=== PATIENT | female | born 1995 | race Caucasian/White ===

== ENCOUNTER 2016-06-05 22:00 | Emergency (ER) | payer OTHER ==
[~2016-06-05] VITALS: Ht 160 cm; Wt 62.7 kg
[~2016-06-05 22:00] MED LIST: AMPH20CA3 PO
[2016-06-05 22:04] VITALS: TEMP 36.8; Ht 160 cm; Wt 62.7 kg
[2016-06-05] MEDS ORDERED: FERR1TAB13 PO (23:08)
[2016-06-05] MEDS ORDERED: MULT1CAP6 PO (23:08)
[2016-06-05] MEDS ORDERED: XYLOCAINE 1%/SOD BICARB 20 ML VIAL INFIL ONE (23:30)
--- NOTE | 2016-06-05 23:45 | EMERGENCY ROOM VISIT NOTE ---
ED Visit Note First contact with patient: 22:40 Chief Complaint: "Cut on left palm". History of Present Illness: This patient is a 20-year-old female who presents to the Emergency Department via private vehicle accompanied by female friend for evaluation of their left first digit/palm laceration. Patient sustained the laceration while attempting to cut some potatoes with a knife around 5:30 PM when the knife accidentally slipped and cut her left hand. They report a minimal amount of bleeding initially. They deny any numbness or tingling into the distal extremity. They report no decreased range of motion of the affected digit. There is pain with flexion of the thumb. The knife was intact and not broken. Patient is right-handed. Patient rates her current discomfort as a 34/10. Patient's Tetanus status is currently up-to-date as of 2008. Medications: As noted below Allergies: Keflex, citrus PMH: No pertinent past medical history at this time SHx: Patient is a college student ROS: All pertinent positive and negative review of systems are appropriately documented in the History of Present Illness. Physical Exam: VITAL SIGNS - Vital signs and nursing notes were reviewed. GENERAL -20-year-old female appearing her stated age who is in no acute distress. Communicates well with provider and answers questions appropriately. SKIN - There is a 1 cm long laceration noted anterior ventral aspect of the left first digit at the base of the first MCP. The edges gape apart with traction. No foreign bodies appreciated. Upon further examination there are no deep structures including vessel, tendon, or bony structures appreciated. There is no active bleeding noted. MUSCULOSKELETAL - Laceration as described above. +5/5 strength appreciated of the affected digit. Full range of motion of the affected digit. NEUROLOGIC - Spinothalamic tract was found to be intact with ability to discriminate sharp versus dull sensation. No sensory defects of the dorsal column were appreciated utilizing light touch for evaluation. VASCULAR - Capillary refill was brisk. ED Course: Patient was seen and evaluated by myself. Risks and benefits of performing primary wound closure versus no repair were discussed with the patient who verbalizes understanding. Verbal consent was obtained prior to performing the procedure. 1 cc of 1% buffered lidocaine was used to perform local anesthetization. The wound was cleansed and prepped in the typical sterile fashion utilizing normal saline and Betadine. Once proper anesthetization was established, the wound was further examined and demonstrated a fillet type laceration that would not close well with sutures. The wound was copiously irrigated with normal saline and Betadine. The wound was closed using Dermabond with the wound edges being well approximated. Patient tolerated the procedure well. No complications were met. The wound was cleansed and dressed with a metal splint. Patient educated on worrisome symptoms for return visit to the Emergency Department. Patient discharged to home in good condition. In the evaluation and treatment of this patient the following differential diagnoses were entertained: Left finger laceration, fracture, among others. Current/Historical Medications Scheduled Ferrous Sulfate ( Ferrous Sulfate), 325 MG PO QAM Multiple Vitamins W/ Minerals (Multi For Her), 1 CAP PO DAILY Allergies Coded Allergies: [place] (Verified Allergy, Unknown, RASH, 06/05/16) Cephalexin (Unverified Adverse Reaction, Intermediate, skin rash, 06/05/16) Vital Signs Date Time Temp Pulse Resp B/P Pulse Ox O2 Delivery O2 Flow Rate FiO2 06/05/16 23:54 86 18 121/71 98 06/05/16 22:04 36.8 67 20 127/62 96 Room Air Departure Information Impression Primary Impression: Laceration Dispostion Home / Self-Care Condition GOOD Referrals No Doctor, Assigned (PCP) Patient Instructions My [facility] Additional Instructions Discharge Instructions: You have received Dermabond on her left hand. This is dissolvable. Please wear the splint for comfort until the glue has dissolved. Proper wound care is essential for adequate wound healing and infection prevention. You may wash your hands but please be careful so as to not dissolve the glue prematurely. Look for signs of infection of the wound including: increased pain, swelling, foul discharge, streaking, or increased temperature. If any of these are noticed you should return to the Emergency Department for further assessment and treatment. As with any laceration you may have received nerve damage to the surrounding tissues. This damage may or may not be permanent. You should keep the area covered with sunscreen for the first 6 months to 1 year when at risk for exposure to help minimize scarring. You can also use scar reducing creams or Vitamin E oil to help minimize scarring. For pain control, you can use the following sijt-dzn-vixyfzp medicines (if >12 yo): - Regular strength (325mg/tab) Tylenol (acetaminophen) 2 tabs every 4-6 hours as needed. Do not exceed 12 tablets in a 24 hour period. Avoid taking more than 4 grams (4000 mg) of Tylenol per day. This includes any other sources of acetaminophen you may take on a regular basis. - Regular strength (200 mg/tab) Advil (ibuprofen) 1-2 tabs every 4-6 hours as needed. Do not exceed a dose of 3200 mg per day. Return to the emergency department if your symptoms worsen despite treatment course outlined above.
[2016-06-05 23:54] VITALS: BP 121/71; PULSE 86; O2SAT 98
== END 2016-06-05 23:53 | disposition home or self-care (01) ==
LOC: C.EDB 22:00 → C.EDD 23:53
DX: S61.012A Laceration without foreign body of left thumb without damage to nail, initial encounter (principal); W26.0XXA Contact with knife, initial encounter; Y93.G1 Activity, food preparation and clean up; Y92.89 Other specified places as the place of occurrence of the external cause; Y99.8 Other external cause status

== ENCOUNTER 2016-06-24 11:42 | Emergency (ER) | payer OTHER ==
[~2016-06-24] VITALS: Ht 160 cm; Wt 61.0 kg
[~2016-06-24 11:42] MED LIST changes: -AMPH20CA3 PO; +FERR1TAB13 PO; +MULT1CAP6 PO
[2016-06-24 12:03] VITALS: TEMP 36.9; Ht 160 cm; Wt 61.0 kg
[2016-06-24] MEDS ORDERED: CYAN10005 PO (12:14)
--- NOTE | 2016-06-24 12:42 | DIAGNOSTIC IMAGING REPORT ---
CHEST ONE VIEW PORTABLE CLINICAL HISTORY: CHEST PAIN dyspnea COMPARISON STUDY: 2014 FINDINGS: The bones soft tissues and hemidiaphragms are normal. The cardiomediastinal silhouette is normal. The lungs are clear. The pulmonary vasculature is normal. IMPRESSION: Negative chest. Electronically signed by: Robinson Howell M.D. 06/24/2016 12:41 PM Dictated Date/Time: 06/24/2016 12:41 PM
[2016-06-24] MEDS ORDERED: AZITHROMYCIN 250 MG TAB PO STA (12:56)
[2016-06-24] MEDS ORDERED: OSELTAMIVIR PHOSPHATE 75 MG CAP PO STA (12:56)
[2016-06-24] MEDS ORDERED: AZITTAB PO (13:00)
[2016-06-24] MEDS ORDERED: NF406 PO (13:00)
[2016-06-24 13:35] VITALS: BP 128/74; PULSE 70; O2SAT 99
--- NOTE | 2016-06-24 13:40 | EMERGENCY ROOM VISIT NOTE ---
History Report prepared by Aileen: Preethi Askew Under the Supervision of: Dr. Carlos Olivier M.D. First contact with patient: 12:12 Chief Complaint: ILLNESS Stated Complaint: HIVES, FEVER, COUGH, CP, BODY ACHES, GAEL, EARPAIN History of Present Illness The patient is a 20 year old female who presents to the Emergency Room with complaints of a mild cough starting a few days ago. The patient also complains of bilateral ear aches, headache, sinus pressure, chest heaviness, and joint achiness. She also complains of a fever of 100 degrees Fahrenheit. She has been taking Mucinex without relief. She denies sinus drainage, lower extremity swelling, or any other complaints. She received her flu shot this year. The patient is a psychiatric nursing aide. She went to [facility] a week ago and may have had ill contacts. She denies any personal history of lung problems. The patient is not a smoker. She denies any chance of . Source of History: patient Onset: a few days ago Position: other (global) Symptom Intensity: mild Quality: other (cough) Modifying Factors (Relieving): other (Mucinex without relief) Associated Symptoms: + fevers, + headache Review of Systems See HPI for pertinent positives & negatives. A total of 10 systems reviewed and were otherwise negative. Past Medical & Surgical Medical Problems: (1) Strep pharyngitis (2) Tonsillitis (3) Urinary tract infection (4) Urticarial rash Old medical records were reviewed. Nurse's notes were reviewed and I agree with. Family History Diabetes mellitus FH: heart disease FHx: cancer Hypertension Seizures Social History Smoking Status: Never Smoker Alcohol Use: occasionally Drug Use: none Marital Status: single Housing Status: lives with roommate Occupation Status: [employer] student Current/Historical Medications Scheduled Azithromycin (Zithromax Z-Mychal), 0 PO UD Cyanocobalamin (Vitamin B-12), 1,000 MCG PO DAILY Ferrous Sulfate (Kp Ferrous Sulfate), 325 MG PO QAM Multiple Vitamins W/ Minerals (Multi For Her), 1 CAP PO DAILY Oseltamivir Phosphate (Tamiflu), 1 CAP PO BID Allergies Coded Allergies: [place] (Verified Allergy, Unknown, RASH, 06/24/16) Cephalexin (Unverified Adverse Reaction, Intermediate, skin rash, 06/24/16) Physical Exam Vital Signs Date Time Temp Pulse Resp B/P Pulse Ox O2 Delivery O2 Flow Rate FiO2 06/24/16 12:03 36.9 77 16 128/81 99 Room Air Physical Exam General: Non-ill appearing, young female, in no acute distress. HEENT: Normal cephalic atraumatic. TMs are normal. Pupils are equal round and reactive to light. Extraocular movements are intact. Oropharynx is pink with moist mucous membranes. No swelling of the mouth lips or tongue. Neck: Supple with a midline trachea. No meningeal signs or stiffness, no JVD or bruits. No Stridor. Negative Brudzinski's sign. Chest: Clear to auscultation bilaterally. No wheezes or rhonchi. No increased work of breathing. Heart: regular rate and rhythm. Abdomen: Soft nontender, nondistended without rebound guarding or rigidity. Extremities: No cyanosis clubbing or edema. No calf tenderness or assymetry Spine/Back. Non tender to palpation. No CVA tenderness Skin: Good turgor without rashes. Neurologic exam: Cranial nerves two through 12 are intact. Motor and sensation are intact and symmetrical throughout. Medical Decision & Procedures ER Provider Diagnostic Interpretation: X-ray results as stated below per interpretation by me and the radiologist: CHEST ONE VIEW PORTABLE CLINICAL HISTORY: CHEST PAIN dyspnea COMPARISON STUDY: 2014 FINDINGS: The bones soft tissues and hemidiaphragms are normal. The cardiomediastinal silhouette is normal. The lungs are clear. The pulmonary vasculature is normal. IMPRESSION: Negative chest. Electronically signed by: Robinson Howell M.D. 06/24/2016 12:41 PM Dictated Date/Time: 06/24/2016 12:41 PM Laboratory Results Test 06/24/16 12:25 Influenza Type A Antigen POS for Influ A (NEG) Influenza Type B Antigen Neg for Influ B (NEG) Laboratory studies as stated above per my review. Medications Administered Medications (Trade) Dose Ordered Sig/Nehal Route Start Time Stop Time Status Last Admin Dose Admin Oseltamivir Phosphate (Tamiflu Cap) 75 mg NOW STAT PO 06/24/16 12:56 06/24/16 12:58 DC 06/24/16 13:35 75 MG Azithromycin (Zithromax Tab) 500 mg NOW STAT PO 06/24/16 12:56 06/24/16 12:58 DC 1/31/17 13:35 500 MG ED Course 1212: Past medical records reviewed. The patient was evaluated in room B09, and a complete history and physical examination were performed. 1256: Zithromax Tab 500 mg PO, Tamiflu Cap 75 mg PO 1307: Upon reevaluation, the patient is resting comfortably. I discussed the results and treatment plan with her. She verbalized agreement of the treatment plan. The patient was discharged home. Medical Decision Differential diagnosis includes but is not limited to influenza, sinusitis, bronchitis, and pneumonia. This patient comes in as described above. She was placed in room B9. She's had flulike illness for couple days .she's also had a lot of bronchitis/ sinusitis type symptoms as well. Her tympanic membranes are clear on exam. She has nontoxic and non-lethargic. She has nothing to stress meningitis or encephalitis. She's not hypoxemic. A chest x-ray does not show any focal infiltrate. She appears well-hydrated appearing. Her influenza test came back positive. I will start on Tamiflu the first dose was given here. Also given her bronchitis/sinusitis type symptoms, I will start on Z-Mychal as well. The first dose is given here. She can use uolr-bkl-[id number] acetaminophen/Tylenol but do not exceed jumy-ily-vkialzc recommended dosages. Return if: Worsening of symptoms, shortness breath, any new problems or concerns and follow up with her regular doctor 1-2 days for recheck. She is happy with plan and discharged to home. Impression Primary Impression: Influenza-like illness Additional Impression: Bronchitis Scribe Attestation The scribe's documentation has been prepared under my direction and personally reviewed by me in its entirety. I confirm that the note above accurately reflects all work, treatment, procedures, and medical decision making performed by me. Departure Information Dispostion Home / Self-Care Prescriptions Oseltamivir Phosphate (Tamiflu) 75 Mg Cap 1 CAP PO BID for 5 Days, #10 CAP Prov: Carlos Olivier M.D. 06/24/16 Azithromycin (ZITHROMAX Z-MYCHAL) 250 Mg Tab 0 PO UD, #1 PKT Prov: Carlos Olivier M.D. 06/24/16 Referrals No Doctor, Assigned (PCP) Forms HOME CARE DOCUMENTATION FORM, IMPORTANT VISIT INFORMATION, WORK / SCHOOL INSTRUCTIONS Patient Instructions My [facility] Additional Instructions Rest. Plenty of fluids. Use Tamiflu 75 mg twice a day for 5 days Use azithromycin Z-Mychal as directed Return if: Worsening of symptoms, shortness of breath, not tolerating fluids, any new problems or concerns. May use pwwh-wdt-[id number] ibuprofen and/or acetaminophen if needed for fever or aches. Do not exceed the rznv-jkp-uhucpew recommended dosages Follow-up with your doctor in 1-2 days if not getting better or return to ER symptoms worsen. Problem Qualifiers
== END 2016-06-24 13:35 | disposition home or self-care (01) ==
LOC: C.EDB 11:44
DX: J40 Bronchitis, not specified as acute or chronic (principal); Z87.440 Personal history of urinary (tract) infections; Z83.3 Family history of diabetes mellitus; Z82.49 Family history of ischemic heart disease and other diseases of the circulatory system; Z79.899 Other long term (current) drug therapy

== ENCOUNTER 2017-01-17 09:39 | Emergency (ER) | payer OTHER ==
[~2017-01-17] VITALS: Ht 160 cm; Wt 60.0 kg
[~2017-01-17 09:39] MED LIST changes: +CYAN10005 PO
[2017-01-17 09:52] VITALS: Ht 160 cm; Wt 60.0 kg
[2017-01-17] MEDS ORDERED: ESCI10TA17 PO (10:02)
[2017-01-17 10:28] LABS: URINE APPEARANCE TURBID (CLEAR); URINE BILIRUBIN NEG (NEG); URINE COLOR YELLOW; URINE EPITHELIAL CELL AUTO 20-30 /lpf (0-5); URINE NITRITE NEG (NEG); URINE PH 7.5 (4.5-7.5); URINE SPECIFIC GRAVITY 1.006 (1.000-1.030); UROBILINOGEN NEG (NEG); ZZUR CULT IF INDIC CLEAN CATCH YES
[2017-01-17 10:42] LABS: MANUAL MICROSCOPIC REQUIRED? NO; REVIEW REQ? NO; SULFASALICYLIC ACID POS (NEG)
--- NOTE | 2017-01-17 10:50 | EMERGENCY ROOM VISIT NOTE ---
ED Visit Note First contact with patient: 09:58 CHIEF COMPLAINT: Frequent and painful urination with hematuria HISTORY OF PRESENT ILLNESS: This 21 year old woman has had increased frequency of urination, burning pain with urination, and a feeling of incomplete voiding that started yesterday. She passes very small volumes of urine with each episode of voiding. Today she had blood in her urine. She denies back pain, fevers/chills, abdominal pain, or vaginal discharge. She reports history of UTI in the past, most recently about 2 years ago, states this feels the same. REVIEW OF SYSTEMS: GENERAL: No fever or chills, easy fatigue, loss of appetite , or significant weight change. GASTROINTESTINAL: No abdominal pain, vomiting , loss of appetite, or diarrhea. PMH: The patient is healthy; there is no significant medical or surgical history. SOCIAL HISTORY: Patient lives at home. PHYSICAL EXAM: Vital Signs: Reviewed Nurse's notes. The abdomen is soft, mildly tender in the suprapubic area, but no masses or organs are felt. There is no CVA tenderness. The skin is clear and the patient is alert and appears well. EMERGENCY DEPARTMENT COURSE: I examined the patient. She is well-hydrated, nontoxic-appearing, no exam findings concerning for pyelonephritis. Urinalysis shows pyuria and hematuria. Nitrate test is negative. Urine culture is pending. Patient updated on results. Rx for Macrobid sent to pharmacy. Patient was discharged home in stable condition and ambulatory. Problem List Medical Problems: (1) Strep pharyngitis Status: Resolved (2) Tonsillitis Status: Resolved (3) Urinary tract infection Status: Resolved (4) Urticarial rash Status: Resolved Current/Historical Medications Scheduled Cyanocobalamin (Vitamin B-12), 1,000 MCG PO DAILY Escitalopram (Lexapro), 10 MG PO DAILY Ferrous Sulfate (Kp Ferrous Sulfate), 325 MG PO QAM Multiple Vitamins W/ Minerals (Multi For Her), 1 CAP PO DAILY Nitrofurantoin Monohyd Macrocr (Macrobid), 100 MG PO BID Phenazopyridine Hcl (Pyridium), 1 TAB PO TID Allergies Coded Allergies: [place] (Verified Allergy, Unknown, RASH, 01/17/17) Cephalexin (Unverified Adverse Reaction, Intermediate, skin rash, 01/17/17) Vital Signs Date Time Temp Pulse Resp B/P (MAP) Pulse Ox O2 Delivery O2 Flow Rate FiO2 01/17/17 11:47 71 18 102/59 99 Room Air 01/17/17 11:45 36.8 69 18 122/81 99 01/17/17 09:52 36.8 69 18 122/81 99 Laboratory Results Test 01/17/17 09:15 01/17/17 10:02 Urine Color YELLOW Urine Appearance TURBID (CLEAR) Urine pH 7.5 (4.5-7.5) Urine Specific [place] 1.006 (1.000-1.030) Urine Protein 1+ (NEG) Urine Glucose (UA) NEG (NEG) Urine Ketones NEG (NEG) Urine Occult Blood 3+ (NEG) Urine Nitrite NEG (NEG) Urine Bilirubin NEG (NEG) Urine Urobilinogen NEG (NEG) Urine Leukocyte Esterase LARGE (NEG) Urine WBC (Auto) >30 /hpf (0-5) Urine RBC (Auto) 5-10 /hpf (0-4) Urine Hyaline Casts (Auto) 1-5 /lpf (0-5) Urine Epithelial Cells (Auto) 20-30 /lpf (0-5) Urine Bacteria (Auto) NEG (NEG) Departure Information Impression Primary Impression: Urinary tract infection Dispostion Home / Self-Care Condition GOOD Prescriptions Phenazopyridine Hcl (PYRIDIUM) 200 Mg Tab 1 TAB PO TID for 2 Days, #6 TAB Prov: Heavenly Cortes CRNP 01/17/17 Nitrofurantoin Monohyd Macrocr (Macrobid) 100 Mg Cap 100 MG PO BID for 7 Days, #14 CAP Prov: Heavenly Cortes CRNP 01/17/17 Referrals No Doctor, Assigned (PCP) Patient Instructions ED UTI Cystitis Female, My [facility] Additional Instructions You have been treated in the Emergency Department for a Urinary Tract Infection (UTI). You have been prescribed Macrobid to be taken twice a day for 7 days. This is an antibiotic. All antibiotics have the potential to cause diarrhea. Stop this medication and contact a medical provider if you were to develop any significant adverse side effects including: wheezing, shortness of breath, passing out, vomiting, or a diffuse rash. Always take antibiotics as directed and COMPLETE the ENTIRE course regardless of the improvement of your symptoms. You have been prescribed Pyridium to be taken as prescribed. This medicine will help with the urinary symptoms that you have been experiencing. Be aware that Pyridium may turn your urine a red-orange or brown color. This effect is harmless. Drink plenty of water and stay well hydrated. You should drink twice as much as you normally would for the next week. As with any trip to the Emergency Department, you should follow-up with your Primary Care Provider from today's visit. Return to the emergency department if your symptoms persist despite treatment plan outlined above or if the following symptoms occur: Abdominal pain, fever/ chills, low back pain, severe nausea/vomiting, or any other concerns. Problem Qualifiers Primary Impression: Urinary tract infection Urinary tract infection type: acute cystitis Hematuria presence: with hematuria Qualified Codes: N30.01 - Acute cystitis with hematuria
[2017-01-17] MEDS ORDERED: NITR-5 PO (10:51)
[2017-01-17] MEDS ORDERED: PHEN-775 PO (10:51)
[2017-01-17 11:45] VITALS: TEMP 36.8
[2017-01-17 11:47] VITALS: BP 102/59; PULSE 71; O2SAT 99
== END 2017-01-17 11:46 | disposition home or self-care (01) ==
LOC: C.EDB 09:40 → C.EDA 11:46
DX: N30.01 Acute cystitis with hematuria (principal)

== ENCOUNTER 2017-07-02 12:09 | Emergency (ER) | payer OTHER ==
[~2017-07-02] VITALS: Ht 160 cm; Wt 60.6 kg
[~2017-07-02 12:09] MED LIST changes: +ESCI10TA17 PO
[2017-07-02 12:14] VITALS: TEMP 36.4; Ht 160 cm; Wt 60.6 kg
[2017-07-02] MEDS ORDERED: AMPH20CA3 PO (12:28)
[2017-07-02] MEDS ORDERED: ONDANSETRON INJ 2 MG/ML 2 ML VIAL IV STA (12:31)
[2017-07-02] MEDS ORDERED: SODIUM CHLORIDE 0.9% 1000ML 1,000 ML IV STA ×2 (12:31→14:28)
[2017-07-02 12:59] LABS: BASO % 0.3 %; BASO ABS # 0.04 K/uL (0-0.2); EOS % 0.1 %; EOS ABS # 0.01 K/uL (0-0.5); HEMATOCRIT 39.2 % (37-47); HEMOGLOBIN 14.4 g/dL (12.0-16.0); IG# 0.09 K/uL (0.00-0.02); LYMPH % 13.6 %; LYMPH ABS # 2.08 K/uL (1.2-3.4); MEAN CELL VOLUME 88.1 fL (80-100); MEAN CORPUSCULAR HEMOGLOBIN 32.4 pg (25-34); MEAN CORPUSCULAR HGB CONC 36.7 g/dl (32-36); MONO ABS # 0.77 K/uL (0.11-0.59); NEUT % 80.4 %; NEUT ABS # 12.26 K/uL (1.4-6.5); PLATELET COUNT 387 K/uL (130-400); RED CELL DISTRIBUTION WIDTH SD 38.3 fL (36.4-46.3); WHITE BLOOD COUNT 15.25 K/uL (4.8-10.8)
[2017-07-02 13:15] LABS: ALBUMIN 4.5 gm/dl (3.4-5.0); CALCIUM 9.5 mg/dl (8.5-10.1); CREATININE 0.68 mg/dl (0.60-1.20); POTASSIUM 3.6 mmol/L (3.5-5.1)
--- NOTE | 2017-07-02 14:09 | EMERGENCY ROOM VISIT NOTE ---
History First contact with patient: 12:18 Chief Complaint: VOMITING Stated Complaint: VOMITING 24 HOURS, CHILLS, FEVER Nursing Triage Summary: pt reports not able to keep anything down for past 24 hours vomits everything she eats or drinks. mid abd pain History of Present Illness The patient is a 21 year old female who presents to the Emergency Room with complaints of nausea with vomiting which began approximately 24 hours ago. The patient states she has also experienced chills, but was unable to find a thermometer to check for fever. She spontaneously awoke with the symptoms, and has been having difficulty keeping food or fluids down. She states today, she has vomited approximately 3 times, but is concerned because she only urinated once 24 hours. She is experiencing some epigastric and left upper quadrant abdominal pain, which she states is consistent, but worse with retching. When she does retch, she notices that she becomes sweaty and very dizzy. The patient has been unable to tolerate liquids, and when she vomits, she describes it as stomach acid. She denies any chest pain, dyspnea, constipation, diarrhea , or urinary symptoms. She is a [employer] student, but states she is in town from [place]. She denies any other recent illness. Review of Systems A complete 10 point review of systems was reviewed with the patient with pertinent positives and negatives as per history of present illness. All else were negative. Past Medical/Surgical History Medical Problems: (1) Strep pharyngitis (2) Tonsillitis (3) Urinary tract infection (4) Urticarial rash Family History Diabetes mellitus FH: heart disease FHx: cancer Hypertension Seizures Social History Smoking Status: Never Smoker Alcohol Use: occasionally Drug Use: none Marital Status: single Housing Status: lives with roommate Occupation Status: [employer] Current/Historical Medications Scheduled Amphetamine-Dextroamphetamine 20MG (Adderall Xr 20MG), 20 MG PO DAILY Escitalopram (Lexapro), 10 MG PO DAILY Ondasetron Odt (Zofran Odt), 4 MG SL Q6H Physical Exam Vital Signs Date Time Temp Pulse Resp B/P (MAP) Pulse Ox O2 Delivery O2 Flow Rate FiO2 07/02/17 17:08 80 18 119/66 99 Room Air 07/02/17 14:45 62 20 133/79 98 Room Air 07/02/17 13:30 52 20 105/57 97 Room Air 07/02/17 12:14 36.4 67 18 131/69 98 Room Air Physical Exam VITALS: Vitals are noted on the nurse's note and reviewed by myself. Vital signs stable. GENERAL: This is a 21-year-old white female, in no acute distress, nondiaphoretic, well-developed well-nourished. SKIN: The skin was without rashes, erythema, edema, or bruising. There is no tenting of the skin. Capillary reflex less than 2 seconds. HEAD: Normocephalic atraumatic. EARS: External auditory canals clear, tympanic membranes pearly hurtado without erythema or effusion bilaterally. EYES: Pupils equal round and reactive to light and accommodation. Conjunctivae without injection, sclerae without icterus. Extraocular movements intact. NOSE: Patent, turbinates without inflammation or discharge. No sinus tenderness. MOUTH: Mucous membranes moist. Tonsils are not enlarged. Pharynx without erythema or exudate. Uvula midline. Airway patent. Tongue does not deviate. NECK: Supple without nuchal rigidity. No lymphadenopathy. No thyromegaly. Cervical spine is nontender. No JVD. HEART: Regular rate and rhythm without murmurs gallops or rubs. LUNGS: Clear to auscultation bilaterally without wheezes, rales or rhonchi. No dullness to percussion. No retractions or accessory muscle use. ABDOMEN: Positive bowel sounds x 4. Normal tympanic percussion. Mild tenderness throughout. Soft, without masses or organomegaly. Garcia sign negative. No guarding or rebound tenderness. No specific pelvic pain/ tenderness. MUSCULOSKELETAL: No muscle atrophy, erythema, or edema noted. Full range of motion without joint tenderness in all extremities. No tenderness to palpation. Normal gait. Strength 5/5 throughout. NEURO: Patient was alert and oriented to person place and time. Normal sensation to light and sharp touch. Deep tendon reflexes 2+ throughout. No focal neurological deficits. Medical Decision & Procedures Laboratory Results 07/02/17 12:45 Red Blood Count 4.45, Mean Corpuscular Volume 88.1, Mean Corpuscular Hemoglobin 32.4, Mean Corpuscular Hemoglobin Concent 36.7, Mean Platelet Volume 9.0, Neutrophils (%) (Auto) 80.4, Lymphocytes (%) (Auto) 13.6, Monocytes (%) (Auto) 5.0, Eosinophils (%) (Auto) 0.1, Basophils (%) (Auto) 0.3, Neutrophils # (Auto) 12.26, Lymphocytes # (Auto) 2.08, Monocytes # (Auto) 0.77, Eosinophils # (Auto) 0.01, Basophils # (Auto) 0.04 07/02/17 12:45 Test 07/02/17 12:45 White Blood Count 15.25 K/uL (4.8-10.8) Red Blood Count 4.45 M/uL (4.2-5.4) Hemoglobin 14.4 g/dL (12.0-16.0) Hematocrit 39.2 % (37-47) Mean Corpuscular Volume 88.1 fL (80-100) Mean Corpuscular Hemoglobin 32.4 pg (25-34) Mean Corpuscular Hemoglobin Concent 36.7 g/dl (32-36) Platelet Count 387 K/uL (130-400) Mean Platelet Volume 9.0 fL (7.4-10.4) Neutrophils (%) (Auto) 80.4 % Lymphocytes (%) (Auto) 13.6 % Monocytes (%) (Auto) 5.0 % Eosinophils (%) (Auto) 0.1 % Basophils (%) (Auto) 0.3 % Neutrophils # (Auto) 12.26 K/uL (1.4-6.5) Lymphocytes # (Auto) 2.08 K/uL (1.2-3.4) Monocytes # (Auto) 0.77 K/uL (0.11-0.59) Eosinophils # (Auto) 0.01 K/uL (0-0.5) Basophils # (Auto) 0.04 K/uL (0-0.2) RDW Standard Deviation 38.3 fL (36.4-46.3) RDW Coefficient of Variation 12.0 % (11.5-14.5) Immature Granulocyte % (Auto) 0.6 % Immature Granulocyte # (Auto) 0.09 K/uL (0.00-0.02) Anion Gap 5.0 mmol/L (3-11) Est Creatinine Clear Calc Drug Dose 109.1 ml/min Estimated GFR () 145.9 Estimated GFR (Non- 125.9 BUN/Creatinine Ratio 15.3 (10-20) Calcium Level 9.5 mg/dl (8.5-10.1) Total Bilirubin 0.6 mg/dl (0.2-1) Aspartate Amino Transf (AST/SGOT) 17 U/L (15-37) Alanine Aminotransferase (ALT/SGPT) 24 U/L (12-78) Alkaline Phosphatase 63 U/L (45-117) Total Protein 9.0 gm/dl (6.4-8.2) Albumin 4.5 gm/dl (3.4-5.0) Globulin 4.5 gm/dl (2.5-4.0) Albumin/Globulin Ratio 1.0 (0.9-2) Lipase 64 U/L (73-393) Human Chorionic Gonadotropin, Quant 65337 mIU/mL Medications Administered Medications (Trade) Dose Ordered Sig/Nehal Route Start Time Stop Time Status Last Admin Dose Admin Sodium Chloride 1,000 ml @ 999 mls/hr Q1H1M STAT IV 07/02/17 12:31 07/02/17 13:31 DC 07/02/17 13:27 999 MLS/HR Ondansetron HCl (Zofran Inj) 4 mg NOW STAT IV 07/02/17 12:31 07/02/17 12:32 DC 07/02/17 13:27 4 MG Sodium Chloride 1,000 ml @ 999 mls/hr Q1H1M STAT IV 07/02/17 14:28 07/02/17 15:28 DC 07/02/17 15:13 999 MLS/HR ED Course The patient was seen and evaluated as above. IV access obtained, labs drawn. The patient was given 1 L normal saline solution and 4 mg Zofran. Labs were reviewed, and discussed with the patient bedside. The patient was given a second liter of NSS IV. Urine test was positive. I discussed this result with the patient at bedside. Quantitative HCG ordered. After approximately 1 hour, no quantitative HCG results returned, so I contacted the lab and were advised it needed another 15 minutes. Approximately 1 hour later, still no quantitative HCG. RN called the lab and was advised they are having difficulty running the test. I discussed all findings of testing with the patient and her boyfriend at bedside. Discharge instructions reviewed, the patient was discharged home in good condition. Medical Decision This is a 21-year-old female patient presents to the emergency department complaining of one-day history of nausea with vomiting. Her LMP was May 12. 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 The patient is sexually active and does not take control. Her symptoms are consistent with [place] [address], however, test was positive while here in the ED. Renal, hepatic function were normal. lipase was normal, and no obvious electrolyte abnormalities. No obvious signs of UTI on UA, however the patient does appear dehydrated. She was given 2 L NSS and 4mg Zofran with significant improvement in symptoms. The patient is planning on following up outpatient in a clinic in [place] regarding discussion about options due to the . Etiologies such as , gastroenteritis, food borne illness, infections, obstruction, pancreatitis, appendicitis, diverticulitis, inflammatory bowel disease, GI bleed, biliary pathology, toxicologic as well as others were entertained. Medication Reconcilliation Current Medication List: was personally reviewed by me Blood Pressure Screening Patient's blood pressure: Normal blood pressure Impression Primary Impression: Gastroenteritis Additional Impression: Departure Information Dispostion Home / Self-Care Condition GOOD Prescriptions Ondasetron Odt (ZOFRAN ODT) 4 Mg Tab 4 MG SL Q6H for Nausea, #6 TAB Prov: Mignon Chen PA-C 07/02/17 Referrals No Doctor, Assigned (PCP) [facility] Patient Instructions ED Gastroenteritis Viral, ED Preg Morning Sickness, ED Care, [facility] Additional Instructions You were seen in the emergency department today for acute gastroenteritis. While here in the ED, your test was noted to be positive. Labs were significant only for elevated white blood cell count. Renal function was normal. You have been prescribed Zofran to be used for any nausea or vomiting. Take as prescribed. Please drink plenty of fluids and get plenty of rest. You may begin adding an foods as tolerated. Follow-up with your PCP/[facility] in 1-2 days for re- evaluation. Follow-up with gynecology within 1 week to discuss options regarding and care. You should begin taking vitamins. No ibuprofen or decongestants. Return to the ED for worsening abdominal pain, intractable vomiting, significant fever, vomiting blood, bloody diarrhea, or other concerning symptoms. Problem Qualifiers Additional Impression: Weeks of gestation: less than 8 weeks Qualified Codes: Z3A.01 - Less than 8 weeks gestation of
[2017-07-02] MEDS ORDERED: ONDA4TAB10 SL (14:19)
[2017-07-02 17:08] VITALS: BP 119/66; PULSE 80; O2SAT 99
== END 2017-07-02 17:34 | disposition home or self-care (01) ==
LOC: C.EDB 13:03
DX: O99.89 Other specified diseases and conditions complicating pregnancy, childbirth and the puerperium (principal); K52.9 Noninfective gastroenteritis and colitis, unspecified; Z3A.00 Weeks of gestation of pregnancy not specified; Z79.899 Other long term (current) drug therapy